=== PATIENT | female | born 1965 | race Two or more races ===

== ENCOUNTER 2016-03-31 05:22 | Emergency (ER) | payer MEDICAID ==
[~2016-03-31] VITALS: Ht 172.7 cm; Wt 63.5 kg
[2016-03-31] MEDS ORDERED: HYDROCODONE/APAP 5/325MG 1 EACH TABLET ONE (06:21)
[2016-03-31] MEDS ORDERED: IBUPROFEN 600 MG TABLET PO ONE ×2 (06:26→06:30)
[2016-03-31] MEDS ORDERED: HYDROCODONE/APAP 5/325MG 1 EACH TABLET PO ONE (06:30)
[2016-03-31 07:09] VITALS: BP 130/65
== END 2016-03-31 07:10 | disposition home or self-care (01) ==
LOC: ER 05:24
DX: S52.502A Unspecified fracture of the lower end of left radius, initial encounter for closed fracture (principal); Z88.0 Allergy status to penicillin; W18.39XA Other fall on same level, initial encounter; Y93.9 Activity, unspecified; Y92.9 Unspecified place or not applicable; Y99.9 Unspecified external cause status
CPT/HCPCS: 29125; 73090; 73110; 99284; A4606; Z7610

== ENCOUNTER 2016-10-13 19:30 | Emergency (ER) | payer MEDICAID ==
[~2016-10-13] VITALS: Ht 172.7 cm; Wt 68.0 kg
[2016-10-13 19:41] VITALS: BP 159/100
== END 2016-10-13 20:09 | disposition home or self-care (01) ==
LOC: ER 19:31
DX: L03.116 Cellulitis of left lower limb (principal); Z88.0 Allergy status to penicillin
CPT/HCPCS: A4606; Z7610

== ENCOUNTER 2016-10-15 10:11 | Emergency (ER) | payer MEDICAID ==
[~2016-10-15] VITALS: Ht 172.7 cm; Wt 72.6 kg
[2016-10-15 10:18] VITALS: BP 150/98
== END 2016-10-15 10:48 | disposition home or self-care (01) ==
LOC: ER 10:13
DX: R21 Rash and other nonspecific skin eruption (principal); Z88.0 Allergy status to penicillin
CPT/HCPCS: 82962; 99282; A4606; Z7610

== ENCOUNTER 2016-10-17 09:58 | Emergency (ER) | payer MEDICAID ==
[~2016-10-17] VITALS: Ht 172.7 cm; Wt 72.6 kg
--- NOTE | 2016-10-17 10:04 | NUR ---
PRESENTS SELF TO ED DT EPIGASTRIC PAIN WITH MIDSTERNAL CHEST PAIN, 4/10, NON RADIATING SINCE LAST NIGHT. PATIENT IS AAO4, APPEARS IN NO APPARENT DISTRESS. RESPIRATION EVEN AND UNLABORED. SKIN IS WARM TO TOUCH AND NON DIAPHORETIC. AFEBRILE. VSS
--- NOTE | 2016-10-17 10:24 | NUR ---
MD CRUZ AT BEDSIDE
[2016-10-17] MEDS ORDERED: LIDOCAINE 2% JEL UROJET 10 ML MM ONE (10:30)
[2016-10-17] MEDS ORDERED: FAMOTIDINE/PF INJ 20 MG/2 ML VIAL IV ONE (10:30)
[2016-10-17] MEDS ORDERED: MAG HYDROX/AL HYDROX/SIMETH 30 ML UDC PO ONE (10:30)
--- NOTE | 2016-10-17 10:30 | NUR ---
PATIENT REFUSED IV INSERTION. MD CRUZ MADE AWARE
--- NOTE | 2016-10-17 10:35 | NUR ---
[employer]CRE[employer] REPORTER AT BEDSIDE FOR BLOOD DRAW
[2016-10-17 10:38] LABS: BASOPHILS % (AUTO) 0.5 % (0.0-2.0); EOSINOPHILS # (AUTO) 0.1 /CMM (0.0-0.7); EOSINOPHILS % (AUTO) 1.1 % (0.0-6.0); HEMATOCRIT 43 % (33-45); HEMOGLOBIN 14.1 g/dL (11.5-14.8); LYMPHOCYTES # (AUTO) 1.3 /CMM (0.8-4.8); LYMPHOCYTES % (AUTO) 18.7 % (20.0-44.0); MEAN CORPUSCULAR HEMOGLOBIN 29 PG (26.0-33.0); MEAN CORPUSCULAR HGB CONC 33 g/dl (31.0-36.0); MEAN CORPUSCULAR VOLUME 86 fL (82-100); MONOCYTES # (AUTO) 0.4 /CMM (0.1-1.30); MONOCYTES % (AUTO) 5.2 % (2.0-12.0); NEUTROPHILS # (AUTO) 5.2 /CMM (1.8-8.9); NEUTROPHILS % (AUTO) 74.5 % (43.0-81.0); PLATELET COUNT (AUTO) 290 /CMM (150-450); RDW COEFFICIENT OF VARIATION 12.6 (11.5-15.0); RED BLOOD CELL COUNT(AUTO) 4.96 MIL/uL (4.0-5.2)
--- NOTE | 2016-10-17 10:43 | NUR ---
[employer]OWNSHIP ASSESSOR AT BEDSIDE
[2016-10-17 10:48] LABS: CALCIUM, SERUM 8.3 mg/dL (8.5-10.1); CARBON DIOXIDE 26 mmol/L (21-32); CHLORIDE 105 mmol/L (98-107); CREATININE 0.9 mg/dL (0.6-1.3); GLUCOSE 132 mg/dL (74-106); POTASSIUM 3.6 mmol/L (3.5-5.1); SODIUM SERUM 139 mmol/L (136-145); UREA NITROGEN, BLOOD 14 mg/dL (7-18)
[2016-10-17 10:56] LABS: TROPONIN I < 0.017 ng/mL (0.00-0.056)
[2016-10-17 10:57] LABS: INR 0.98 (0.87-1.13); PROTHROMBIN TIME 10.2 SECS (9.5-12.7)
[2016-10-17] MEDS ORDERED: ACETAMINOPHEN ES 500 MG TABLET ONE (11:47)
[2016-10-17] MEDS ORDERED: ACETAMINOPHEN ES 500 MG TABLET PO ONE (12:00)
[2016-10-17 12:22] VITALS: BP 163/77
--- NOTE | 2016-10-17 12:22 | NUR ---
Patient discharged to home in stable condition. Written and verbal after care instructions given. Patient verbalizes understanding of instruction.
== END 2016-10-17 12:25 | disposition home or self-care (01) ==
LOC: ER 09:59
DX: I10 Essential (primary) hypertension (principal); Z88.0 Allergy status to penicillin; T50.905A Adverse effect of unspecified drugs, medicaments and biological substances, initial encounter; Y92.89 Other specified places as the place of occurrence of the external cause
CPT/HCPCS: 36415; 71010; 80048; 84443; 84484; 85025; 85730; 93005; 99285; A4606; Z7610

== ENCOUNTER 2017-09-16 20:03 | Emergency (ER) | payer MEDICAID, OTHER ==
[~2017-09-16] VITALS: Ht 172.7 cm; Wt 72.6 kg
[2017-09-16 20:06] VITALS: BP 121/74
[2017-09-16] MEDS ORDERED: IBUPROFEN 600 MG TABLET PO ONE ×2 (20:26→20:30)
== END 2017-09-16 22:15 | disposition home or self-care (01) ==
LOC: ER 20:03
DX: S93.602A Unspecified sprain of left foot, initial encounter (principal); S80.211A Abrasion, right knee, initial encounter; I10 Essential (primary) hypertension; W10.9XXA Fall (on) (from) unspecified stairs and steps, initial encounter; Y93.89 Activity, other specified; Y92.89 Other specified places as the place of occurrence of the external cause; Y99.8 Other external cause status
CPT/HCPCS: 73610; 73630; 99284; A4606; Z7610

== ENCOUNTER 2018-10-08 08:25 | Emergency (ER) | payer MEDICAID ==
[~2018-10-08] VITALS: Ht 172.7 cm; Wt 74.8 kg
[2018-10-08 08:38] VITALS: BP 130/80
--- NOTE | 2018-10-08 08:43 | NUR ---
right foot/ankle pain- twisted during exercise
--- NOTE | 2018-10-08 09:49 | NUR ---
BUSHRA BANDAGE APPLIED. PT D/C HOME IN STAVBLE CONDITION.
== END 2018-10-08 09:51 | disposition home or self-care (01) ==
LOC: ER 08:29
DX: M25.571 Pain in right ankle and joints of right foot (principal); I10 Essential (primary) hypertension; F10.10 Alcohol abuse, uncomplicated; Y90.9 Presence of alcohol in blood, level not specified; Z78.0 Asymptomatic menopausal state; Z88.0 Allergy status to penicillin; X50.1XXA Overexertion from prolonged static or awkward postures, initial encounter; Y93.B9 Activity, other involving muscle strengthening exercises; Y92.89 Other specified places as the place of occurrence of the external cause; Y99.8 Other external cause status
CPT/HCPCS: 73610-TC; 73630-TC